=== PATIENT | female | born 1955 | race Caucasian/White ===

== ENCOUNTER 2022-09-02 10:45 | Emergency (ER) | payer OTHER, SELFPAY ==
[2022-09-02 10:45] VITALS: BP 125/71; PULSE 83; RESP 14; TEMP 36.4; O2SAT 98
[2022-09-02 10:49] VITALS: BMI 23.9
--- NOTE | 2022-09-02 10:49 | ED.VIS.FALL ---
HPI HPI - Fall History of Present Illness Chief Complaint: Fall PFS PFS Medical History (Updated 09/02/22 @ 15:[address] Adrian Peña, DO) Chronic knee pain after total replacement of both knee joints Home Medications NK 09/02/22 [History Last Taken Unknown] Allergy/AdvReac Type Severity Reaction Status Date / Time No Known Allergies Allergy Verified 09/02/22 10:45 Surgical History (Updated 09/02/22 @ 11:11 by Erika Wiggins) Hip joint replacement status Social History Smoking Status: Never smoker EXAM Physical Exam Const Vital Signs: 09/02/22 10:45 Temperature 97.6 F L Temperature Source Temporal Pulse Rate 83 Respiratory Rate 14 Blood Pressure 125/71 H Blood Pressure Mean 89 Pulse Ox 98 Oxygen Delivery Method Room Air MDM MDM MDM Narrative Medical decision making narrative: HISTORY OF PRESENT ILLNESS: 67-year-old female here for left hip left knee pain after mechanical fall from standing. No head trauma loss of consciousness endorsed. No numbness tingling or loss sensation noted. REVIEW OF SYSTEMS: Pertinent positives: Left knee, left hip pain Pertinent negatives: PHYSICAL EXAM: Nursing triage notes reviewed, Vital signs reviewed Primary Survey Airway: Intact Breathing: Bilateral breath sounds Circulation: Palpable bilateral femorals, Palpable bilateral radial, Palpable bilateral DP and Palpable bilateral PT Disability / Spine precautions GCS Score: Eye Openin Verbal Response: 5 Motor Response: 6 Secondary Survey Constitutional: Please see MDM Head: Atraumatic, Midface stable, NO jaw malocclusion, No Cephalohematoma, and No Lacerations noted Eye: Pupils equal round and reactive to light, Extraocular muscles intact and No periorbital ecchymosis or stepoff, no evidence of entrapment ENT: Oropharynx clear, no lacerations, no hemotympanum, no raccoon eyes or laurent sign Cervical spine / Neck: No cervical spine bony tenderness, crepitance, or stepoff deformity Trachea midline Lungs: Clear to auscultation, No asymmetric rise and No crepitus, no flail chest Cardiac: Regular rate and rhythm and No murmurs Abdomen: Soft, Nontender and No rebound Pelvis: Pelvis stable to compression : No evidence of genital injury Back: No midline bony tenderness to thoracic/lumbar/sacral spines Neuro: At baseline, intact strength and sensation in bilateral upper and lower extremities. 2+ patellar reflexes bilaterally. Extremities: NO gross Deformities, TTP over left greater trochanter, left knee. Intact flexion extension of knee and hip on the left, intact internal/external rotation of the left hip. Compartments are soft Psych: Normal affect Nursing triage notes reviewed, Vital signs reviewed MEDICAL DECISION MAKING: Chief Complaint: Left hip, left knee pain External records reviewed: No recent advanced imaging of the involved extremities Factors affecting care: No prior health history noted in the Social determinants of health: History obtained from others: Consults: None ALL IMAGES HAVE BEEN PERSONALLY REVIEWED AND INTERPRETED BY MYSELF. MDM Narrative: The patient was hemodynamically stable, afebrile, nontoxic-appearing. Primary secondary trauma surveys concerning for I considered the following differential diagnosis: Fracture dislocation of the left hip, left knee I obtained x-rays which showed no evidence of fracture dislocation left hip however there was x-ray read of a tibial plateau fracture in the left knee. I re-evaluated the patient she had no point tenderness over tibial plateau. I offered a CT scan here to further elucidate the etiology of her complaint. Patient and daughter were alert and oriented x3 and had capacity to make her medical decisions. They chose to forego CT at this time given lack of tenderness and low suspicion for fracture. I gave strict return precautions and outpatient orthopedic follow-up. The patient and/or family, caregivers express understanding. The patient and/or family, caregivers agrees with the plan. Total critical care time today provided was at least 0 minutes. This excludes separately billable procedures. Critical care time if documented is secondary to the patient having high probability of clinically significant/life threatening deterioration in the patient's condition which required my urgent intervention. Shared decision making: I will have a discussion with the patient and or visitors regarding risk/benefits of further testing or admission. They will be made aware of of the risk/benefits inherent in this decision they will be given the opportunity to voice understanding. Radiography Diagnostic Testing: Clinical Impression(s) from Imaging Studies Knee X-Ray 09/02/22 11:34 IMPRESSION: Status post total knee replacement. I suspect a tibial plateau fracture with anterior soft tissue swelling and joint effusion. Electronically Signed: Loc Pagan MD at 12:34 EDT , Hip/Pelvis X-Ray 09/02/22 11:50 IMPRESSION: Status post bilateral total hip replacement. No acute abnormality is seen. Electronically Signed: Loc Pagan MD at 12:31 EDT , Femur X-Ray 09/02/22 12:05 IMPRESSION: No acute fracture is seen. Electronically Signed: Loc Pagan MD at 12:29 EDT , X-rays of the left hip/pelvis, femur, knee were personally read and interpreted myself. I see no obvious fracture dislocation or hardware displacement or dislocation. Discharge Plan Triage Chief Complaint: Fall ED Provider: Adrian Peña Dx/Rx/DC Orders Clinical Impression: Contusion of hip, Contusion of knee, Fracture of tibial plateau Instructions: ED Hip Contusion Prescriptions: No Action NK Primary Care Provider: Bunny Roque Referrals: Tucker Cardoso MD [Med Staff - Active Staff] - Bunny Roque MD [Primary Care Provider] - Activity Restrictions/Additional Instructions: Thank you for trusting us with your care today! Please take Tylenol (2 pills, 650 mg), ibuprofen (2 pills, 400 mg) every 6 hours as needed for pain and fever control. Please return to the emergency department if your symptoms change or worsen. Specifically if you develop discoloration, loss of sensation, loss of movement in the involved extremity. Please return if your symptoms increase in severity. Please follow with your Orthopedic surgeon the next available appointment Please follow with your primary care physician for further outpatient evaluation and management. Disposition Disposition: Home, Self Care Discharge Date/Time: 09/02/22 13:43
--- NOTE | 2022-09-02 11:34 | RAD_ITS ---
STUDY: X-RAY - LEFT KNEE REASON FOR EXAM: Female, 67 years old. Pain following recent fall. TECHNIQUE: 4 view(s) of the knee. COMPARISON: None. FINDINGS: Normal visualized distal femur. I suspect a tibial plateau fracture. Status post total knee replacement. Anterior soft tissue swelling. RAD/Knee 1 or 2 Views IMPRESSION: Status post total knee replacement. I suspect a tibial plateau fracture with anterior soft tissue swelling and joint effusion. Electronically Signed: Loc Pagan MD at 12:34 EDT ,
--- NOTE | 2022-09-02 11:50 | RAD_ITS ---
STUDY: X-RAY - PELVIS AND LEFT HIP REASON FOR EXAM: Female, 67 years old. Hip pain after fall TECHNIQUE: 3 views of the pelvis and hip. COMPARISON: None. FINDINGS: Large amount of fecal material is seen in the colon. There are multiple calcified phleboliths. There is narrowing with cortical sclerosis and osteophyte formation of the sacroiliac joint consistent with degenerative osteoarthritic changes. Normal bilateral superior and inferior pubic rami. There is narrowing with sclerosis of the pubic symphysis. Normal bilateral ischial tuberosities. The patient is status post bilateral total hip replacement. RAD/HIP, UNI W/ Pelvis 2-3 Views IMPRESSION: Status post bilateral total hip replacement. No acute abnormality is seen. Electronically Signed: Loc Pagan MD at 12:31 EDT ,
--- NOTE | 2022-09-02 12:05 | RAD_ITS ---
STUDY: X-RAY - LEFT FEMUR REASON FOR STUDY: Female, 67 years old. Pain following a recent fall. TECHNIQUE: 4 view(s) of the femur. COMPARISON: None. FINDINGS: The patient is status post left hip and left knee replacement. Knee joint replacement. Normal visualized soft tissue structure. RAD/Femur Min 2 Views IMPRESSION: No acute fracture is seen. Electronically Signed: Loc Pagan MD at 12:29 EDT ,
== END 2022-09-02 13:43 | disposition home or self-care (01) ==
PROVIDERS: Emergency Provider Emergency Medicine; PCP Family Medicine; Visit Provider Emergency Medicine
DX: S70.02XA Contusion of left hip, initial encounter (principal); S80.02XA Contusion of left knee, initial encounter; S82.142A Displaced bicondylar fracture of left tibia, initial encounter for closed fracture; W19.XXXA Unspecified fall, initial encounter
CPT/HCPCS: 73502; 73552; 73560; 99282